=== PATIENT | female | born 1965 | race Caucasian/White ===

== ENCOUNTER 2017-03-23 06:18 | Inpatient (IN) | payer OTHER ==
[2017-03-11 08:43] LABS: HEMATOCRIT 38.6 % (37.0-47.0); MCH 30.2 pg (26.0-34.0); MCHC 33.6 g/dL (28.0-37.0); MCV 89.7 fL (80.0-100.0); RBC 4.31 mil/uL (4.20-5.00); RDW 13.8 % (10.5-14.5); WBC 4.5 thou/uL (4.0-11.0)
[2017-03-11 08:45] LABS: URINE BILIRUBIN NEGATIVE (Negative); URINE BLOOD NEGATIVE (Negative); URINE COLOR YELLOW; URINE GLUCOSE-RANDOM* NEGATIVE (Negative); URINE KETONES NEGATIVE (Negative); URINE LEUKOCYTES-REFLEX NEGATIVE (Negative); URINE PROTEIN (DIPSTICK) NEGATIVE (Negative); URINE SPECIFIC GRAVITY <= 1.005 (1.003-1.035); URINE UROBILINOGEN 0.2 E.U./dl (0.2-1.0)
[2017-03-11 08:51] LABS: ALBUMIN 3.7 g/dL (3.4-5.0); CALCIUM 9.1 mg/dL (8.5-10.1); POTASSIUM 4.2 mmol/L (3.5-5.1)
[2017-03-11 08:55] LABS: PROTIME 9.5 Seconds (9.3-11.4)
[2017-03-23] VITALS (7 sets, daily range): BP systolic 117–138; BP diastolic 68–95
[~2017-03-23] VITALS: Ht 162.6 cm; Wt 98.0 kg
--- NOTE | ~2017-03-23 | O ---
[facility] [place] [address] OPERATIVE REPORT Name: RLOY METZGER Room #: 316-P [facility] IN ..#: [id number] Admission: 03/23/17 Attend Phys: Emerson Conrad MD Discharge: Date of : 67 Report #: [id number] THIS REPORT FOR: //name// CC: Emerson Clayton PREOPERATIVE DIAGNOSIS: End-stage degenerative arthritis, right knee. POSTOPERATIVE DIAGNOSIS: End-stage degenerative arthritis, right knee. PROCEDURE: Right total knee arthroplasty. HISTORY OF PRESENT ILLNESS: This 51-year-old female has had progressive chronic problems with the right knee. She has similar, but less severe problems on the left side. The right knee has been treated previously with arthroscopic debridement over 1 year ago. At that time, she had rather significant degenerative changes with some meniscus damage on both the medial and lateral side. Unfortunately, her symptoms have persisted and she has progressed with further cartilage wear, loss of joint space and further moderate valgus malalignment, she still has acceptable motion for about 5 degrees through 115 degrees, but with significant crepitus and significant sense of instability due to her valgus malalignment and marked joint crepitus. Given this, we have elected to go ahead with total knee arthroplasty despite her relatively young age. DESCRIPTION OF PROCEDURE: The patient was taken to the operating room where she was placed under general anesthesia. Femoral nerve block was also applied. The right knee and leg were meticulously prepped and draped. A thigh tourniquet was applied and inflated to 300 mmHg. An anterior longitudinal skin incision was made. This was carried through the medial retinaculum. The patella was reflected laterally. Rather marked degenerative change in all 3 compartments was noted. The [employer] knee system was utilized. Intramedullary guides were used on both the femur and the tibia. The femur was cut in 5 degrees of valgus and the tibia cut perpendicular to the long axis of bone. Sufficient bone was resected to correct the mild flexion contracture. The femur seemed best suited for a size 3 femoral component. The tibia was best suited for a size 2 tibial component. An 11-mm polyethylene liner using the lesion dished component resulted in satisfactory alignment, range of motion and stability. The patellar surface was resected and a 29-mm patellar button seemed to fit nicely. Appropriate anchor holes were created. Once all the trial inserts were in place, the knee demonstrated acceptable alignment, good range of motion with full extension and flexion beyond 130 degrees and satisfactory stability with both varus and valgus stress. The patella seemed to track nicely, but with slight lateral tilt, very limited lateral release was performed, which seemed to help this nicely. The trial components were removed. The intramedullary canal was blocked with bone block on both the femoral and tibial sides. Methyl methacrylate cement was mixed. This was injected into the [address] [address] OPERATIVE REPORT Name: METZGERROLY Room #: 316-P [facility] IN M.R.#: [id number] Admission: 03/23/17 Attend Phys: Emerson Conrad MD Discharge: Date of : 67 Report #: [id number] porous surface of the tibia and the [employer] size 2 Shereen right tibial implant was then inserted. This was impacted into position and seated nicely and appeared to be secure. A press fit noncemented size 3 cruciate retaining lesion in porous femoral component was inserted on the distal femur, was impacted into position and seated nicely and appeared to be secure. An 11-mm lesion dished polyethylene liner was then inserted, it was snapped into place under direct vision and seemed to seat nicely and appeared to be secure. The 29-mm patellar button was cemented into place and secured with a patellar clamp until the cement had adequately hardened. Once the cement was firm, range of motion, alignment, and stability were once again assessed and felt to be satisfactory. The wound was copiously irrigated. The tourniquet was deflated. Good hemostasis was established. A single Hemovac was left in the wound. Total tourniquet time was approximately 69 minutes. The fascia was then closed with multiple #1 Vicryl sutures. The subcutaneous tissues were closed with 0 Monocryl. The skin was closed with skin norma. A sterile dressing was applied. The patient was awakened and returned to recovery room in good condition. <ELECTRONICALLY SIGNED> By: Emerson Conrad MD 03/24/17 0803 [id number] 1344 Emerson Conrad MD /nt
--- NOTE | ~2017-03-23 | D ---
[facility] [place] [address] DISCHARGE SUMMARY Name: ROLY METZGER Room #: 316-P [facility] IN ..#: [id number] Admission: 03/23/17 Attend Phys: Emerson Conrad MD Discharge: Date of : 67 Report #: [id number] THIS REPORT FOR: //name// CC: Emerson Clayton DATE OF SERVICE: 03/26/2017 FINAL DIAGNOSES: 1. End-stage degenerative arthritis, right knee. 2. Chronic anxiety and depression with mild chronic pain syndrome. OPERATIONS AND PROCEDURES: Right total knee arthroplasty. HISTORY OF PRESENT ILLNESS: This 51-year-old female presents with progressive right knee pain. Clinical exam and x-rays confirm rather significant degenerative arthritis with varus malalignment. We discussed treatment options and elected to go ahead with surgical knee replacement. HOSPITAL COURSE: The patient was admitted and taken to the operating room on 03/23/2017. Her preoperative evaluation revealed good range of motion of the right knee, but with moderate varus malalignment and significant degenerative change with pain, crepitus and swelling. A right total knee arthroplasty was performed. This resulted in significant improvement in alignment with good range of motion and stability. She tolerated the procedure well. Postoperatively, her course was largely unremarkable. The wound and dressing remains clean and dry. She was able to advance from IV analgesics to oral analgesics. She was able to resume a regular diet. She started with physical therapy and made excellent progress and is now safe and independent with ambulation using a walker. She was started on anticoagulation medications including Xarelto. She seems to be safe and independent and ready for discharge on 03/26/2017. DISCHARGE MEDICATIONS: Include Xarelto 10 mg daily, Lipitor 10 mg daily, Flexeril 10 mg b.i.d., albuterol inhaler p.r.n., Zocor 40 mg daily, Lyrica 75 mg t.i.d., Cymbalta 60 mg daily, Topamax 100 mg daily, hydrocodone 5-10 mg q. 4 hours p.r.n. for pain. DISCHARGE INSTRUCTIONS: She will continue with gentle gradually advancing activity and exercise at home with some visiting physical therapy to assist with exercise instruction. I have asked her to call me should there be any problems [address] [address] DISCHARGE SUMMARY Name: ROLY METZGER Room #: 316-P [facility] IN M.R.#: [id number] Admission: 03/23/17 Attend Phys: Emerson Conrad MD Discharge: Date of : 67 Report #: [id number] or questions. I will plan to see her back in my office for followup and suture removal in 2 weeks. <ELECTRONICALLY SIGNED> By: Emerson Conrad MD 03/26/17 1302 [id number] 1053 Emerson Conrad MD /nt
[~2017-03-23 06:18] MED LIST: CYMBALTA60 MG PO; DICLOFENAC SODI75 MG PO; FLEXERIL PO; IMITREX 25 MG T25 M1 PO; LEGATRIN PM PO; LISINOPRIL20 MG PO; LYRICA 75 MG CA75 MG PO; PROAIR HFA8.5 GM INH; TOPAMAX 100 MG100 MG PO; TROSPIUM CHLORI60 MG PO; TYLENOL PM EX-1 EACH PO; TYLOPHEN500 MG PO; VOLTAREN GEL 1100 G2 TOP; ZOCOR40 MG PO
[2017-03-24 00:30] VITALS: BP 120/77
[2017-03-24 05:30] VITALS: BP 112/74
[2017-03-24 06:39] LABS: HEMATOCRIT 28.8 % (37.0-47.0); HEMOGLOBIN 10.1 gm/dL (12.0-15.0); MCH 30.9 pg (26.0-34.0); MCV 88.3 fL (80.0-100.0); RBC 3.26 mil/uL (4.20-5.00); RDW 13.8 % (10.5-14.5); WBC 7.8 thou/uL (4.0-11.0)
[2017-03-24 09:38] VITALS: BP 107/52
[2017-03-24 20:00] VITALS: BP 139/78
[2017-03-25 04:00] VITALS: BP 127/69
[2017-03-25 04:50] LABS: HEMATOCRIT 27.3 % (37.0-47.0); HEMOGLOBIN 9.4 gm/dL (12.0-15.0); MCHC 34.6 g/dL (28.0-37.0); MCV 89.6 fL (80.0-100.0); RBC 3.05 mil/uL (4.20-5.00); RDW 13.8 % (10.5-14.5); WBC 8.6 thou/uL (4.0-11.0)
[2017-03-25 14:28] VITALS: BP 127/69
[2017-03-25 16:00] VITALS: BP 139/73
[2017-03-25 19:49] VITALS: BP 123/68; BP 129/66
[2017-03-26 04:44] VITALS: BP 123/69
[2017-03-26 05:10] LABS: HEMATOCRIT 26.2 % (37.0-47.0); MCH 30.7 pg (26.0-34.0); MCHC 34.2 g/dL (28.0-37.0); MCV 89.7 fL (80.0-100.0); RBC 2.92 mil/uL (4.20-5.00); RDW 13.5 % (10.5-14.5); WBC 6.4 thou/uL (4.0-11.0)
[2017-03-26 08:46] VITALS: BP 127/66
[2017-03-26 14:13] VITALS: BP 127/69
[2017-03-26 14:18] VITALS: BP 127/69
== END 2017-03-26 14:50 | disposition home health service (06) | DRG 470 ==
LOC: PRE 06:18 → 3N 06:24 → TBA 06:24 → PRE 06:39 → 3N 14:25 → PRE 16:28 → 3N 03-26 14:50
PROVIDERS: Orthopaedic Surgery
PROC: 0SRC0J9 Replacement of Right Knee Joint with Synthetic Substitute, Cemented, Open Approach (ICD-10-PCS; principal; 2017-03-23)
PROC: 3E0T3BZ Introduction of Anesthetic Agent into Peripheral Nerves and Plexi, Percutaneous Approach (ICD-10-PCS; 2017-03-23)
DX: M17.11 Unilateral primary osteoarthritis, right knee (principal); F41.9 Anxiety disorder, unspecified; F32.9 Major depressive disorder, single episode, unspecified; G89.4 Chronic pain syndrome; G47.33 Obstructive sleep apnea (adult) (pediatric); K59.00 Constipation, unspecified
CPT/HCPCS: 10795; 50010; 50101; 50415; 51130; 51225; 51412; 51771; 53000; 53364; 56525; 62110; 62900; 65060; 70005

== ENCOUNTER → 2017-04-30 | Day surgery (SDC) | payer OTHER ==
[~2017-04-30] VITALS: Ht 162.6 cm; Wt 96.2 kg
[~2017-04-30] MED LIST changes: +ASPIR 8181 MG PO; +DICLOFENAC SODI75 MG TOP; +HYDROCODONE-AP1 EAC6 PO
--- NOTE | ~2017-04-30 | O ---
[facility] [place] [address] OPERATIVE REPORT Name: ROLY METZGER Room #: 150-4 ADM IN M.R.#: [id number] Admission: 04/30/17 Attend Phys: Emerson Conrad MD Discharge: Date of : 67 Report #: [id number] THIS REPORT FOR: //name// CC: Emerson Clayton DATE OF SERVICE: 04/30/2017 PREOPERATIVE DIAGNOSIS: Wound breakdown, right knee. POSTOPERATIVE DIAGNOSIS: Wound breakdown, right knee. PROCEDURE: Wound debridement and secondary closure, right knee. SURGEON: Emerson Conrad MD INDICATIONS: This 52-year-old female underwent right total knee arthroplasty one month ago. She has been doing generally well and making excellent progress with therapy with minimal discomfort. However, she has a small area of skin breakdown in the mid aspect of the wound. There is some superficial necrotic debris, but not much inflammation and no purulence. Recent cultures have no growth. We have discussed that this may heal on its own with time; however, I am concerned that she is at risk for superficial infection, which could spread to the knee and therefore, I think the better approach is an acute debridement and secondary closure if possible. DESCRIPTION OF PROCEDURE: The patient was taken to the operating room. The right knee and leg were meticulously prepped and draped. No tourniquet was required. The vast majority of her old wound is well healed and looks good. There is a small peanut shaped superficial area of skin necrosis in the mid aspect of the wound, this measures about 1.5 cm in length and 1 cm in width. This area was sharply debrided and tissue sent for pathology and for cultures. Antibiotics including an Ancef and vancomycin were administered. The surrounding skin seems to be in good shape and I felt a primary skin closure at this point would be acceptable. The skin edge was ellipsed and the orientation was a bit more oblique or transverse and could not be included in the old vertical incision line. Nevertheless, I felt the surrounding subcutaneous tissues appeared to be well vascularized and satisfactory. There was no deep extension. The skin edges were very gently reapproximated using 2-0 nylon in a mattress fashion to bring the deeper tissues together and 4-0 Prolene in the skin to very gently bring the skin edges together. This closed nicely and seemed to be satisfactory. There was a second much small area with a small punctate opening, which looked like a possible suture reaction, this was also excised making an incision about 1 cm in length. This was also closed using the 2-0 nylon for deep closure and 4-0 Prolene in the skin. All the sutures were left such that they could be removed entirely and no deep sutures were left to [address] [address] OPERATIVE REPORT Name: ROLY METZGER Room #: 150-4 ADM IN M.R.#: [id number] Admission: 04/30/17 Attend Phys: Emerson Conrad MD Discharge: Date of : 67 Report #: [id number] avoid any further foreign body reaction. At this point, I felt both these wounds look as though they should healed up nicely. A YAZAN suction silver impregnated dressing was applied, this healed nicely and appeared to be dry and secure. A gentle 6-inch Dieter wrap was applied for a gentle compression support. The patient was then returned to recovery room. I think she can be discharged home today. We will probably continue on Bactrim antibiotics until we have culture results back. At this point, her previous cultures taken several days ago in the office have remained no growth. I will plan to talk with her over the weekend and we will see her back in 5-7 days for dressing change. <ELECTRONICALLY SIGNED> By: Emerson Conrad MD 05/01/17 0742 [id number] [id number] Emerson Conrad MD /nt
[2017-04-30 07:00] VITALS: BP 145/92
[2017-04-30 09:00] VITALS: BP 145/92
== END ==
LOC: TBA 05:27 → PRE 05:27 → OR 05:27 → EDSTATUS 08:48 → PRE 10:36
DX: I96 Gangrene, not elsewhere classified (principal)
CPT/HCPCS: 50010; 50101; 50386; 55430; 56525; 56526; 57091; 62110; 62900; 70005